=== PATIENT | female | born 1970 | race African-American/Black ===

== ENCOUNTER 2018-03-15 11:54 | Observation (INO) | payer OTHER ==
[~2018-03-15 11:54] MED LIST: LIDOCAINE 2% (SDV) 5 ML INJ; ONDANSETRON 4 MG INJ; PROPOFOL 200 MG INJ; ROCURONIUM 50 MG INJ; SUCCINYLCHOLINE CHLORIDE 100 MG/5 ML SYG IV
[2018-03-15] MEDS ORDERED: ROPIVACAINE 0.5 % 30 ML VIAL ×2 (14:34→14:49)
[2018-03-15] MEDS ORDERED: MIDAZOLAM 1 MG/ML 2 ML INJ (14:34)
[2018-03-15] MEDS: POLYMYXIN/BACITRACIN 1L IRRIG (15:36)
[2018-03-15] MEDS ORDERED: PROVENTIL HFA 6.7GM INHALER (15:52)
[2018-03-15] MEDS ORDERED: FENTAnyl 50 MCG/ML VIAL (15:56)
[2018-03-15] MEDS ORDERED: FAMOTIDINE 20 MG INJ (15:56)
[2018-03-15] MEDS ORDERED: DEXAMETHASONE 4 MG/ML 1 ML INJ (15:57)
[2018-03-15] MEDS: oxyCODONE 5 MG TAB PO ×2 (16:00→22:53)
[2018-03-15] MEDS ORDERED: LABETALOL HCL 20MG INJ (16:26)
[2018-03-15] MEDS ORDERED: SUGAMMADEX SODIUM 200 MG/2 ML VIAL IV (18:56)
[2018-03-15] MEDS ORDERED: HYDROmorphONE (0.2 MG/ML) 10ML SYG IV ×2 (19:00)
[2018-03-15] MEDS ORDERED: ONDANSETRON 4 MG INJ IV ×2 (19:00→21:30)
[2018-03-15] MEDS ORDERED: DIPHENHYDRAMINE 50 MG INJ IV (19:00)
[2018-03-15] MEDS ORDERED: MEPERIDINE 25 MG INJ IV (19:00)
[2018-03-15] MEDS ORDERED: ALBUTEROL 0.083% (NEB) 2.5 MG/3 ML AMP HHN (19:00)
[2018-03-15] MEDS ORDERED: FENTAnyl 50 MCG/ML VIAL IV ×2 (19:00)
[2018-03-15] MEDS ORDERED: METOCLOPRAMIDE 10 MG INJ IV (19:00)
[2018-03-15] MEDS: NEOMYC/POLYMYX/BACIT 30 GM OINT (19:06)
[2018-03-15] MEDS: morphine 2 MG INJ IV ×2 (20:17→22:22)
[2018-03-15] MEDS: FENTAnyl 50 MCG/ML VIAL IV ×2 (20:18→22:22)
[2018-03-15] MEDS: HYDROmorphONE (0.2 MG/ML) 10ML SYG IV ×2 (20:18→22:22)
[2018-03-15] MEDS ORDERED: MAGNESIUM HYDROXIDE 30ML CUP PO (21:30)
[2018-03-15] MEDS ORDERED: DIPHENHYDRAMINE 25 MG CAP PO (21:30)
[2018-03-15] MEDS ORDERED: CEFAZOLIN 1 GM INJ IV (21:30)
[2018-03-15] MEDS ORDERED: HYDROmorphONE 2 MG/ML SYG IV (21:30)
[2018-03-15] MEDS: CEFAZOLIN 1 GM/50 ML (PMX) 50 ML IVPB (22:52)
[2018-03-16] MEDS: oxyCODONE 5 MG TAB PO ×3 (01:06→08:54)
[2018-03-16 05:30] LABS: ADD MAN DIFF? NO
[2018-03-16] MEDS: CEFAZOLIN 1 GM/50 ML (PMX) 50 ML IVPB (05:34)
[2018-03-16 05:38] LABS: BASOPHILS % 0.3 % (0.0-2.0); HEMATOCRIT 33.6 % (37.0-47.0); HEMOGLOBIN 11.1 g/dl (12.0-16.0); LYMPHOCYTES # 1.2 10^3/ul (0.8-2.9); LYMPHOCYTES % 10.4 % (15.0-51.0); MEAN CORPUSCULAR HEMOGLOBIN 28.2 pg (29.0-33.0); MEAN CORPUSCULAR VOLUME 85.5 fl (82.0-101.0); MONOCYTE # 0.7 10^3/ul (0.3-0.9); MONOCYTES % 6.7 % (0.0-11.0); NEUTROPHIL # 9.1 10^3/ul (1.6-7.5); NEUTROPHILS % 82.3 % (39.0-77.0); PLATELET COUNT 252 10^3/UL (140-415); RED BLOOD COUNT 3.93 10^6/ul (4.20-5.40)
[2018-03-16 05:38] LABS: WHITE BLOOD COUNT 11.1 10^3/ul (4.8-10.8)
[2018-03-16 06:01] LABS: ANION GAP 13 (8-16); BLOOD UREA NITROGEN 8 mg/dl (7-20); CALCIUM 9.1 mg/dl (8.4-10.2); CARBON DIOXIDE 28 mmol/L (21-31); CHLORIDE 103 mmol/L (97-110); CREATININE 0.56 mg/dl (0.44-1.00); GLUCOSE 139 mg/dl (70-220); POTASSIUM 4.3 mmol/L (3.5-5.1); SODIUM 140 mmol/L (135-144)
[2018-03-16] MEDS: SENNA/DOCUSATE NA (8.6MG/50MG) TAB PO (08:54)
[2018-03-17] MEDS ORDERED: MAGNESIUM HYDROXIDE 30ML CUP PO (21:00)
== END 2018-03-16 10:50 | disposition home or self-care (01) ==
LOC: SDS 11:54 → REC 20:14 → MS1 22:30
DX: S82.842A Displaced bimalleolar fracture of left lower leg, initial encounter for closed fracture (principal); S93.432A Sprain of tibiofibular ligament of left ankle, initial encounter; E66.01 Morbid (severe) obesity due to excess calories; Z68.35 Body mass index [BMI] 35.0-35.9, adult; W10.9XXA Fall (on) (from) unspecified stairs and steps, initial encounter
CPT/HCPCS: 27814; 73610; 80048; 82306; 85025; 97161